=== PATIENT | female | born 2000 | race Two or more races ===

== ENCOUNTER 2024-10-21 14:49 | Emergency (ER) | payer OTHER ==
[~2024-10-21] VITALS: Ht 160 cm; Wt 81.2 kg
[2024-10-21] MEDS ORDERED: ACETAMINOPHEN 500 MG GEL..CAP PO ONE (16:02)
[2024-10-21 16:46] LABS: HEMOGLOBIN 14.9 g/dL (12.0-15.00); MEAN CELL VOLUME 85.1 fL (80.00-100.00); MEAN CORPUSCULAR HEMOGLOBIN 29.4 pg (27.00-32.0); MEAN CORPUSCULAR HGB CONC 34.6 g/dl (32.0-36.0); PLATELET COUNT 241 K/uL (150-450); RED BLOOD COUNT 5.06 M/uL (4.00-6.00); RED CELL DISTRIBUTION WIDTH 13.2 % (11.5-14.5)
[2024-10-21 17:21] LABS: CALCIUM 9.1 mg/dL (8.5-10.1); GFR 67.55; POTASSIUM 4.45 mEq/L (3.5-5.1)
== END 2024-10-21 18:36 | disposition home or self-care (01) ==
LOC: ER 14:51
PROVIDERS: General Practice
DX: J10.1 Influenza due to other identified influenza virus with other respiratory manifestations (principal); Z20.822 Contact with and (suspected) exposure to COVID-19